=== PATIENT | male | born 1970 | race Caucasian/White ===

== ENCOUNTER 2016-12-05 21:11 | Emergency (ER) ==
[2016-12-05] MEDS ORDERED: SODIUM CHLORIDE 1,000 ML IV STA (21:13)
[2016-12-05] MEDS ORDERED: ASPIRIN CHEWABLE PO STA (21:19)
[2016-12-05] MEDS ORDERED: ZOFRAN 4 MG/2 ML IVP STA (21:19)
[2016-12-05] MEDS ORDERED: MORPHINE 2 MG/ML SYRINGE IVP STA ×2 (21:19→21:35)
[2016-12-05] MEDS ORDERED: GI COCKTAIL PO STA (21:19)
[2016-12-05 21:24] VITALS: BP 118/71; TEMP 99; BMI 37.3
[2016-12-05] MEDS ORDERED: NITROSTAT SL ONE (21:29)
[2016-12-05] MEDS: NITROSTAT SL STA ×2 (21:31→21:33)
--- NOTE | 2016-12-05 21:38 | ED.PDOC ---
General ED Provider: Dr. DEVIN BUTT-ER Chief Complaint: Chest Pain Stated Complaint: remy been having cp all week Time Seen by Physician: 21:15 Mode of Arrival: Walk-In Information Source: Patient Exam Limitations: No limitations Nursing and Triage Documentation Reviewed and Agree: Yes Cardiovascular Complaint Exam - Chest Pain Complaint/Exam Onset: Gradual Duration: several days Symptoms Are: Still present Timing: Constant Initial Severity: Mild Current Severity: Moderate Location: Reports: Midsternal Pain Radiates: Reports: Neck Character: Reports: Dull, Tightness Aggravating: Reports: None Alleviating: Reports: Nitro Associated Signs and Symptoms: Reports: Nausea. Denies: Diaphoresis, Vomiting, Fever, Palpitations, Cough, Hemoptysis, Back pain, Abdominal pain, Dizziness, Short of air, Calf pain, Calf swelling Related Surgical History: Reports: Cardiac Cath History of Healthcare-Acquired Pneumonia: Reports: No AMI/ACS Risk Factors: Reports: Sedentary, Diabetes, Obesity, Family history, Hypertension, Dyslipidemia Prior Care for this Complaint: Yes ([facility] fall 2015) Recent Stress Test: No Recent Echo/LV Function: No JVD Present: No Subcutaneous Emphysema Present: No Diminshed Breath Sounds: No Reproducible Chest Wall Pain: No Bilateral Pulses Present: Yes Unequal Pulses Noted: No If Risk Factors for AMI/ACS Consider: EKG, Cardiac Enzymes, Oxygen, Aspirin Differential Diagnoses: Acute [place], ACS Quality Indicators For Acute [place] or Cardiac Chest Pain: EKG in 10min. Review of Systems - Review Of Systems Constitutional: Reports: No symptoms Eyes: Reports: No symptoms Ears, Nose, Mouth, Throat: Reports: No symptoms Respiratory: Reports: No symptoms Cardiac: Reports: Chest pain GI: Reports: No symptoms : Reports: No symptoms Musculoskeletal: Reports: No symptoms Skin: Reports: No symptoms Neurological: Reports: No symptoms Endocrine: Reports: No symptoms Hematologic/Lymphatic: Reports: No symptoms All Other Systems: Reviewed and Negative Past Medical History - Past Medical History Endocrine: Reports: DM 2, Dyslipidemia, Unknown Cardiovascular: Reports: Hypertension Respiratory: Reports: None Hematological: Reports: None Gastrointestinal: Reports: GERD Genitourinary: Reports: None Neuro/Psych: Reports: None Musculoskeletal: Reports: None Cancer: Reports: None - Surgical History General Surgical History: Reports: Unknown - Family History Family History: Reports: Unknown - Social History Smoking Status: Never smoker Hx Substance Use: No Alcohol Screening: None Lives: With family - Immunizations Tetanus Shot up to Date: No Physical Exam - Physical Exam Appearance: Well-appearing, No pain distress, Well-nourished Pain Distress: Moderate Eyes: SONYA, EOMI, Conjunctiva clear ENT: Ears normal, Nose normal, Oropharynx normal Neck: Supple Respiratory: Airway patent Cardiovascular: RRR, Pulses normal, No rub, No murmur GI/: Soft Musculoskeletal: Normal strength, ROM intact, No edema, No calf tenderness Skin: Warm Neurological: Sensation intact Psychiatric: Affect appropriate, Mood appropriate Re-Evaluation - Re-Evaluation Time of Re-Evaluation: 21:45 Status: Improved Vital Signs Stable: Yes Pain Level: 1 Appearance: NAD Lungs: Clear Skin: Warm and Dry Neuro: Alert and Oriented X3 CV: RRR Physician Notification - Case Discussed Physician Notified: dr leo Time of Notification: 21:45 Critical Care Note - Critical Care Note Total Time (mins): 15 Course - Course Orders, Labs, Meds: Orders Category Date Time Status EKG-(ED ONLY) Stat CARDIO 12/05/16 21:13 Completed Senior [employer] [ED SANITIZER APPLIED] .ONCE EMERGENCY 12/05/16 21:14 Active ED IV/MEDIPORT/POWERPORT .ONCE EMERGENCY 12/05/16 21:13 Active OXYGEN [ED APPLY O2] .ONCE EMERGENCY 12/05/16 21:35 Active AMYLASE Stat LAB 12/05/16 21:13 Ordered CBC W/ AUTO DIFF Stat LAB 12/05/16 21:13 Ordered COMPREHENSIVE METABOLIC PANEL Stat LAB 12/05/16 21:13 Ordered CREATINE KINASE Stat LAB 12/05/16 21:13 Ordered D-DIMER Stat LAB 12/05/16 Ordered ESR Stat LAB 12/05/16 21:13 Ordered LIPASE Stat LAB 12/05/16 21:13 Ordered TROPONIN I Stat LAB 12/05/16 21:13 Ordered 0.9 % Sodium Chloride [Saline Flush] MEDS 12/05/16 21:13 Ordered 1 syr IVF PRN PRN Aspirin [Aspirin Chewable] MEDS 12/05/16 21:19 Discontinued 324 mg PO ONCE STA Mag-Al Plus//Lidocaine [Gi Cocktail] MEDS 12/05/16 21:19 Discontinued 30 ml PO ONCE STA Morphine Sulfate [Morphine 2 mg/ml Syringe] MEDS 12/05/16 21:19 Discontinued 2 mg IVP ONCE STA Morphine Sulfate [Morphine 2 mg/ml Syringe] MEDS 12/05/16 21:35 Discontinued 2 mg IVP ONCE STA Nitroglycerin [Nitrostat] MEDS 12/05/16 21:29 Discontinued 0.4 mg SL .STK-MED ONE Nitroglycerin [Nitrostat] MEDS 12/05/16 21:29 Discontinued 0.4 mg SL ONCE STA Ondansetron HCl/Pf [Zofran 4 mg/2 ml] MEDS 12/05/16 21:19 Discontinued 4 mg IVP ONCE STA Sodium Chloride 0.9% [Sodium Chloride] 1,000 ml MEDS 12/05/16 21:13 Active IV 100 mls/hr CXR [CHEST, 1V AP ONLY] Stat RADS 12/05/16 21:25 Ordered Medications Generic Name Dose Route Start Last Admin Trade Name Freq PRN Reason Stop Dose Admin Sodium Chloride 1,000 mls @ 100 mls/hr 12/05/16 21:13 12/05/16 21:19 Sodium Chloride IV 12/06/16 07:12 100 mls/hr .Q10H STA Administration Sodium Chloride 1 syr 12/05/16 21:13 12/05/16 21:19 Saline Flush IVF 1 syr PRN PRN Administration To flush IV Discontinued Medications Generic Name Dose Route Start Last Admin Trade Name Freq PRN Reason Stop Dose Admin Al Hydroxide/Mg Hydroxide 30 ml 12/05/16 21:19 12/05/16 21:27 Gi Cocktail PO 12/05/16 21:20 30 ml ONCE STA Administration Aspirin 324 mg 12/05/16 21:19 12/05/16 21:27 Aspirin Chewable PO 12/05/16 21:20 324 mg ONCE STA Administration Morphine Sulfate 2 mg 12/05/16 21:19 12/05/16 21:27 Morphine 2 Mg/Ml Syringe IVP 12/05/16 21:20 2 mg ONCE STA Administration Morphine Sulfate 2 mg 12/05/16 21:35 12/05/16 21:43 Morphine 2 Mg/Ml Syringe IVP 12/05/16 21:36 2 mg ONCE STA Administration Nitroglycerin 0.4 mg 12/05/16 21:29 12/05/16 21:33 Nitrostat SL 12/05/16 21:30 Not Given ONCE STA Ondansetron HCl 4 mg 12/05/16 21:19 12/05/16 21:28 Zofran 4 Mg/2 Ml IVP 12/05/16 21:20 4 mg ONCE STA Administration Vital Signs: Temp Pulse Resp BP Pulse Ox 12/05/16 21:12 99 F 77 18 118/71 94 L CORRINA Risk Score CORRINA Risk Score: Risk Score Odds of by 30D 0 0.1 (0.1-0.2) 1 0.3 (0.2-0.3) 2 0.4 (0.3-0.5) 3 0.7 (0.6-0.9) 4 1.2 (1.0-1.5) 5 2.2 (1.9-2.6) 6 3.0 (2.5-3.6) 7 4.8 (3.8-6.1) Departure - Departure Time of Disposition: 21:45 Disposition: TSF SHORT-TRM HOSP Discharge Problem: Chest pain Instructions: Chest Pain (ED) Condition: Good Pt referred to PMD for follow-up: No Allergies/Adverse Reactions: Allergies tamsulosin [From Flomax] Adverse Reaction (Verified 12/05/16 21:24) SWELLING/ ELEVATES BLOOD PRESSURE Home Medications: Ambulatory Orders Allopurinol 100 mg PO DAILY 12/05/16 Aspirin/Calcium Carbonate/Mag [Aspirin Buffered 325 mg Tab] 325 mg PO DAILY Fenofibrate [Triglide] 160 mg PO DAILY 12/05/16 Glipizide 5 mg PO DAILY 12/05/16 Lisinopril [Zestril] 5 mg PO DAILY 12/05/16 Metoprolol Succinate [Toprol Xl] 25 mg PO DAILY 12/05/16 Pantoprazole Sodium 40 mg PO BID 12/05/16 Terazosin HCl [Hytrin] 1 mg PO DAILY 12/05/16 Transfer Form Completed: Yes Disposition Discussed With: Patient
[2016-12-05 22:09] LABS: BASOPHILS % (AUTO) 0.4 % (0.0-3.0); EOSINOPHILS # (AUTO) 0.3 K/ul (0.0-0.7); EOSINOPHILS % (AUTO) 3.8 % (0.0-7.0); HEMOGLOBIN 13.8 g/dl (14.0-18.0); IMMATURE GRANULOCYTE % (AUTO) 0.3 % (0.0-5.0); LYMPHOCYTES # (AUTO) 1.8 K/uL (0.60-3.4); LYMPHOCYTES % (AUTO) 26.3 (10.0-50.0); MEAN CORPUSCULAR HEMOGLOBIN 30.7 pg (27.0-31.0); MEAN CORPUSCULAR HGB CONC 36.3 (31.8-35.4); MEAN CORPUSCULAR VOLUME 84.6 fl (80.0-94.0); MONOCYTES # (AUTO) 0.4 K/uL (0.4-2.0); MONOCYTES % (AUTO) 5.1 (0-10); NEUTROPHILS # (AUTO) 4.4 K/ul (2.0-6.9); NEUTROPHILS % (AUTO) 64.1; PLATELET COUNT 176 10^3/uL (140-440); RED BLOOD COUNT 4.49 10^6/ul (4.70-6.10); WHITE BLOOD COUNT 6.87 K/ul (4.2-10.2)
[2016-12-05 22:39] LABS: ERYTHROCYTE SEDIMENTATION RATE 8 mm/hr (0-15); ESR INTERNAL QC INTERNAL QC VALID
[2016-12-05 23:01] LABS: ALANINE AMINOTRANSFERASE 34 U/L (12-78); ALBUMIN 3.3 g/dL (3.4-5.0); ALBUMIN/GLOBULIN RATIO 1.22; ALKALINE PHOSPHATASE 50 U/L (50-136); AMYLASE 44 U/L (25-115); ANION GAP 11.8; ASPARTATE AMINO TRANSFERASE 28 U/L (15-37); BILIRUBIN,TOTAL 0.41 mg/dL (0.00-1.20); BLOOD UREA NITROGEN 22 mg/dL (7-18); BUN/CREATININE RATIO 23.15; CALCIUM 8.9 mg/dL (8.2-10.2); CARBON DIOXIDE 30 mmol/L (21-32); CHLORIDE 101 mmol/L (98-107); CREATINE KINASE 296 U/L; CREATININE 0.95 mg/dL (0.60-1.10); GLUCOSE 297 mg/dL (70-100); LIPASE 35 U/L (8-78); POTASSIUM 3.8 mmol/L (3.5-5.1); SODIUM 139 mmol/L (136-145)
[2016-12-05 23:02] LABS: CREATINE KINASE MB 10.2 ng/ml (0.0-3.6)
--- NOTE | 2016-12-06 07:44 | DI ---
EXAM: Chest one view HISTORY: Chest pain COMPARISON: 09/11/2016 TECHNIQUE: Single view of the chest was performed FINDINGS: The lungs are clear. There is no pleural effusion or pneumothorax. The heart is normal in size. The mediastinal contour is normal. There are no acute abnormalities of the bones. There i s cervical spinal fusion hardware. IMPRESSION: No acute cardiopulmonary process.
== END 2016-12-05 22:15 | disposition short-term general hospital (02) ==
LOC: ED 21:11
DX: R07.9 Chest pain, unspecified (principal); E11.9 Type 2 diabetes mellitus without complications; I10 Essential (primary) hypertension; E78.5 Hyperlipidemia, unspecified; E66.9 Obesity, unspecified; Z79.899 Other long term (current) drug therapy
CPT/HCPCS: 36415; 80053; 82150; 82550; 82553; 83690; 84484; 85025; 85379; 85651; 93005; 93010; 96360; 96361; 96375; 96376; 99285

== ENCOUNTER 2016-12-05 22:22 | Outpatient (CLI) ==
[2016-12-05 21:24] VITALS: BMI 37.3
== END 2016-12-05 22:23 ==
LOC: AMBL 22:22
PROVIDERS: ATTEND Family Medicine
DX: R07.9 Chest pain, unspecified (principal); R53.83 Other fatigue; E11.9 Type 2 diabetes mellitus without complications; I10 Essential (primary) hypertension; E66.9 Obesity, unspecified; K21.9 Gastro-esophageal reflux disease without esophagitis